=== PATIENT | female | born 1980 | race Caucasian/White ===

== ENCOUNTER 2024-10-30 10:11 | Outpatient (CLI) | payer MEDICAID, SELFPAY | END 2024-10-30 10:12 | disposition home or self-care (01) | LOC: INJ CL 10:14 | PROVIDERS: PCP Family Medicine; Visit Provider Family Medicine | DX: M54.16 Radiculopathy, lumbar region (principal); M51.369 Other intervertebral disc degeneration, lumbar region without mention of lumbar back pain or lower extremity pain | CPT/HCPCS: 62323; J0702; Q9966 ==